=== PATIENT | male | born 2000 ===

== ENCOUNTER 2021-09-09 16:29 | Emergency (ER) | payer SELFPAY ==
[~2021-09-09] VITALS: Ht 172.7 cm; Wt 70.5 kg
[2021-09-09 17:33] LABS: BASO % 0.2 % (0.0-2.0); EOS % 0.2 % (0.0-4.0); GRAN # 8.2 K/mm3 (1.4-6.5); HEMATOCRIT 45.6 % (42.0-52.0); HEMOGLOBIN 16.2 g/dl (13.5-18.0); LYMPH # 1.3 K/mm3 (1.2-3.4); LYMPH % 13.3 % (20.0-51.0); MEAN CELL VOLUME 91 fl (80.0-100.0); MEAN CORPUSCULAR HEMOGLOBIN 32 pg (27-31); MEAN CORPUSCULAR HGB CONC 36 g/dl (33.0-37.0); MEAN PLATELET VOLUME 10.9 fl (7.4-10.4); MONO # 0.4 K/mm3 (0.1-0.6); PLATELET COUNT 226 K/mm3 (130-400); REDCELL DISTRIBUTION WIDTH-CV 11.9 % (11.5-14.5)
[2021-09-09 17:50] LABS: ALBUMIN 4.6 gm/dL (3.5-5.0); BILIRUBIN,TOTAL 0.7 mg/dL (0.2-1.2); CALCIUM 9.4 mg/dL (8.4-10.2); CREATININE, serum 0.86 mg/dL (0.72-1.25); POTASSIUM 3.7 mmol/L (3.5-4.5); TOTAL PROTEIN 7.8 gm/dL (6.2-8.1)
[2021-09-09] MEDS ORDERED: VALTREX1 GM PO (18:37)
[2021-09-09] MEDS ORDERED: PREDNISONE20 MG PO (18:37)
[2021-09-09 18:57] VITALS: BP 98/56; PULSE 88; TEMP 98.2
== END 2021-09-09 18:56 | disposition home or self-care (01) ==
LOC: COL.ER 16:29
PROVIDERS: Nurse Practitioner
DX: G51.0 Bell's palsy (principal); R06.4 Hyperventilation

== ENCOUNTER 2023-07-06 13:47 | Emergency (ER) | payer OTHER ==
[~2023-07-06] VITALS: Ht 170.2 cm; Wt 72.7 kg
[~2023-07-06 13:47] MED LIST: PREDNISONE20 MG PO; VALTREX1 GM PO
[2023-07-06 14:50] VITALS: BP 135/72; PULSE 91; TEMP 98.5
== END 2023-07-06 14:50 | disposition home or self-care (01) ==
LOC: COL.ER 13:47
DX: S93.402A Sprain of unspecified ligament of left ankle, initial encounter (principal); X50.1XXA Overexertion from prolonged static or awkward postures, initial encounter; Y93.02 Activity, running
CPT/HCPCS: 31865; L4386